=== PATIENT | female | born 1935 | race Caucasian/White ===

== ENCOUNTER → 2016-05-26 | Outpatient (CLI) | payer MEDICARE, BC ==
[~2016-05-26] MED LIST: ACET-62 PO; CEPH-583 PO; CITA20TA9 PO; CRAN400C PO; DEXT15DR5 BOTH EYES; GABA-336 PO; GUAI600T PO; HYDR-3989 PO; LOSA100T44 PO; MAGN400O4 PO; MEMA10TA21 PO; METF850T2 PO; METO100T7 PO; ONDA4TAB4 PO; POLY17PO6 PO; POTA-81 PO; QUET100T PO
[2016-05-26 07:15] LABS: ANION GAP 9 MEQ/L (5-15); BUN/CREATININE RATIO 19 RATIO (6-26); CALCIUM 8.7 MG/DL (8.4-10.2); CHLORIDE 110 MEQ/L (98-107); CO2 - CARBON DIOXIDE 25 MEQ/L (22-30); CREATININE 1.6 MG/DL (0.7-1.2); GLOMERULAR FILTRATION RATE 31; GLUCOSE 85 MG/DL (65-110); POTASSIUM 5.2 MEQ/L (3.6-5); SODIUM 144 MEQ/L (134-144)
== END ==
LOC: LABNH.PM 00:44
PROVIDERS: ATTEND Family Medicine
DX: R35.8 Other polyuria (principal)
CPT/HCPCS: 36415; 80048; P9604